=== PATIENT | female | born 1990 | race Caucasian/White ===

== ENCOUNTER 2019-02-07 09:37 | Emergency (ER) | payer OTHER ==
[~2019-02-07] VITALS: Ht 172.7 cm; Wt 127.3 kg
[2019-02-07 09:44] VITALS: BP 130/74; Ht 172.7 cm; Wt 127.3 kg
[2019-02-07] MEDS ORDERED: EC-NAPROSYN500 MG PO (13:39)
[2019-02-07] MEDS ORDERED: CYCLOBENZAPRINE10 MG PO (13:39)
== END 2019-02-07 14:00 | disposition home or self-care (01) ==
LOC: D.ER 09:37
DX: S16.1XXA Strain of muscle, fascia and tendon at neck level, initial encounter (principal); S80.12XA Contusion of left lower leg, initial encounter; V89.2XXA Person injured in unspecified motor-vehicle accident, traffic, initial encounter